=== PATIENT | male | born 1935 | race Caucasian/White ===

== ENCOUNTER 2021-07-11 13:02 | Emergency (ER) | payer OTHER ==
[~2021-07-11] VITALS: Ht 175.3 cm; Wt 53.1 kg
--- NOTE | ~2021-07-11 | EMS ---
[place] [id number] EMS Patient Care Report Name: JOSHUA DENNIS Room #: DEP NAHID Wilks#: [id number] Admission: 07/11/21 Attend Phys: Discharge: 07/11/21 Date of : 35 Report #: [id number] THIS REPORT FOR: //name// Report Transmitted: 07/12/2021 09:54 EMS Care Summary [place], [place]/[facility] Incident [id number] @ 07/11/2021 12:26 Incident Location [address] [place] [address] Patient JOSHUA DENNIS Male, 85 Years 1935 Patient Address Patient History Diabetes,Cardiac - Stent,Atrial Fibrillation, Patient Allergies No known allergies, Patient Medications Eliquis, Chief Complaint Syncope Disposition Transported No Lights/[place] Reason Unconscious/Fainting Transported To [facility] Narrative Medic 19 was dispatched to the scene of an unconscious. Upon arrival pt. was found sitting in chair A&Ox4. Pt. stated he had syncope while standing. Pt. denied pain and stated he felt fine. Pt was assisted to the cot and secured with straps. Pt. was taken to the ambulance and loaded into the back. Interventions performed as listed previously. Pt. was transported non-emergent to [facility] without incident. Upon arrival, pt. [place] [address] EMS Patient Care Report Name: JOSHUA DENNIS Room #: DEP [facility].R.#: [id number] Admission: 07/11/21 Attend Phys: Discharge: 07/11/21 Date of : 35 Report #: [id number] taken to the ER. Pt. was assisted to the bed and pt. care and report were given to the RN. Medic 19 returned in service. Initial Vitals @12:42P: 147,R: 14,BP: 135/75,Pain: 0/10,GCS: 15,Glucose: 222,SpO2: 99,Revised Trauma: 12,UT Suspected: false @12:42P: 143,R: 14,Pain: 0/10,GCS: 15,SpO2: 97, @12:54P: 82,R: 14,Pain: 0/10,GCS: 15,SpO2: 98,Revised Trauma: 12, Assessments @12:38MENTAL:Person Oriented,Time Oriented,Event Oriented,Place Oriented,SKIN:HEENT:Head/Face: No Abnormalities,Neck/Airway: No Abnormalities,LUNG SOUNDS:General: No Abnormalities,ABDOMEN:General: No Abnormalities,PELVIS//GI:No Abnormalities,EXTREMITIES:Capillary Refill: Left Upper: < 2 Sec,Capillary Refill: Right Upper: < 2 Sec,Left Arm: No Abnormalities,Right Arm: No Abnormalities,Left Leg: No Abnormalities,Right Leg: No Abnormalities,PULSE:Radial: 2+ Normal,NEURO:No Abnormalities,@12:58MENTAL:Time Oriented,Place Oriented,Event Oriented,Person Oriented,SKIN:HEENT:Head/Face: No Abnormalities,Neck/Airway: No Abnormalities,LUNG SOUNDS:General: No Abnormalities,ABDOMEN:General: No Abnormalities,PELVIS//GI:No Abnormalities,EXTREMITIES:Capillary Refill: Left Upper: < 2 Sec,Capillary Refill: Right Upper: < 2 Sec,Left Arm: No Abnormalities,Right Arm: No Abnormalities,Left Leg: No Abnormalities,Right Leg: No Abnormalities,PULSE:Radial: 2+ Normal,NEURO:No Abnormalities, Impression Syncope / Fainting Procedures @12:42 12-Lead ECG Response: UnchangedSucceeded @12:38 ALS Assessment Response: UnchangedSucceeded @12:43 IV Therapy - Normal Saline (.9% NaCl) 300cc (18 ga) Site: Antecubital-Left Response: UnchangedSucceeded Timeline 12:25,Call Received 12:25,Dispatch Notified 12:26,Dispatched 12:28,En Route 12:35,On Scene 12:38,At Patient 12:38,ALS Assessment,Response: UnchangedSucceeded, 12:42,12-Lead ECG,Response: UnchangedSucceeded, 12:42,BP: / M,PULSE: 143,RR: 14 R,SPO2: 97 Ox,ETCO2: ,BG: ,PAIN: 0,GCS: 15, 12:42,BP: 135/75 M,PULSE: 147,RR: 14 R,SPO2: 99 Ox,ETCO2: ,B,PAIN: [address] [address] EMS Patient Care Report Name: SONNYJOSHUA Room #: DEP NAHID Wilks#: [id number] Admission: 07/11/21 Attend Phys: Discharge: 07/11/21 Date of : 35 Report #: [id number],GCS: 15, 12:43,IV Therapy - Normal Saline (.9% NaCl) 300cc 18 ga Site: Antecubital-Left,Response: UnchangedSucceeded, 12:49,Depart Scene 12:54,BP: 136/ M,PULSE: 82,RR: 14 R,SPO2: 98 Ox,ETCO2: ,BG: ,PAIN: 0,GCS: 15, 12:58,At Destination 13:08,Call Closed Disclaimer v1.1 Copyright 2020 [employer] This EMS Care Summary contains data elements from the applicable legal record (which may be displayed differently). It is designed to provide pertinent information for the following purposes: continuity of care, clinical quality, and state data reporting. The complete legal record is available to ED staff and administrators of the receiving hospital in [employer] Patient Tracker. All data is provided "as is."
[2021-07-11 13:26] LABS: HEMATOCRIT 29.7 % (42.0-52.0); HEMOGLOBIN 9.7 gm/dL (14.0-18.0); MCHC 32.8 g/dL (28.0-37.0); MCV 94.5 fL (80.0-100.0); RBC 3.14 mil/uL (4.50-6.00); RDW 17.9 % (10.5-14.5); WBC 4.9 thou/uL (4.0-11.0)
[2021-07-11 13:31] LABS: CALCIUM 8.4 mg/dL (8.5-10.1); POTASSIUM 4.4 mmol/L (3.5-5.1)
[2021-07-11 13:41] LABS: ALBUMIN 2.6 g/dL (3.4-5.0); MAGNESIUM 2.3 mg/dL (1.8-2.4); TOTAL BILIRUBIN 0.3 mg/dL (0.2-1.0); TOTAL PROTEIN 5.9 g/dL (6.4-8.2)
[2021-07-11] MEDS ORDERED: PROTONIX40 M2 PO (13:42)
[2021-07-11] MEDS ORDERED: ASPIRIN EC81 M1 PO (13:42)
[2021-07-11] MEDS ORDERED: ELIQUIS2.5 MG PO (13:42)
[2021-07-11] MEDS ORDERED: MIRALAX119 GM PO (13:43)
[2021-07-11] MEDS ORDERED: COLACE100 MG PO (13:43)
[2021-07-11] MEDS ORDERED: NEURONTIN300 MG PO (13:45)
[2021-07-11] MEDS ORDERED: TYLENOL325 M1 PO (13:45)
[2021-07-11 13:46] LABS: APTT 26.4 Seconds (24.5-32.8); INR 0.98; PROTIME 10.7 Seconds (10.5-12.1)
[2021-07-11 15:31] LABS: URINE BILIRUBIN NEGATIVE (Negative); URINE BLOOD NEGATIVE (Negative); URINE CLARITY CLEAR; URINE COLOR YELLOW; URINE GLUCOSE-RANDOM* NEGATIVE (Negative); URINE KETONES NEGATIVE (Negative); URINE LEUKOCYTES-REFLEX NEGATIVE (Negative); URINE NITRITE-REFLEX NEGATIVE (Negative); URINE PROTEIN (DIPSTICK) NEGATIVE (Negative); URINE UROBILINOGEN 0.2 E.U./dl (0.2-1.0)
[2021-07-11 16:03] VITALS: BP 121/64
--- NOTE | 2021-07-12 12:05 | EKG ---
[address] [address] ELECTROCARDIOGRAM REPORT Name: JOSHUA DENNIS Room #: DEP NAHID Wilks#: [id number] Admission: 07/11/21 Attend Phys: Discharge: 07/11/21 Date of : 35 Report #: [id number] [facility] ED Test Date: 2021-07-11 Test Time: 13:05:40 Pat Name: JOSHUA DENNIS Department: Room: Gender: Resin Maker: : 1935 Requested By: Ruby Preciado Order Number: [id number] MD: Herbert Carroll Measurements Intervals [place] Rate: 72 P: 69 MO: 207 QRS: 79 QRSD: 105 T: 64 QT: 408 QTc: 447 Interpretive Statements Sinus rhythm Atrial premature complexes No previous ECG available for comparison Electronically Signed On 07-12-2021 12:05:07 [employer] PROCESSOR by Herbert Carroll [email or web address] <ELECTRONICALLY SIGNED> By: Herbert Carroll MD, [facility] 07/12/21 1205 1305 1305 Herbert Carroll MD, FACC /EPI
== END 2021-07-11 16:03 | disposition home or self-care (01) ==
LOC: ER 13:02
PROVIDERS: Nurse Practitioner Family
DX: I12.0 Hypertensive chronic kidney disease with stage 5 chronic kidney disease or end stage renal disease (principal); N18.6 End stage renal disease; R55 Syncope and collapse; D64.9 Anemia, unspecified; E11.65 Type 2 diabetes mellitus with hyperglycemia; E11.22 Type 2 diabetes mellitus with diabetic chronic kidney disease; I48.91 Unspecified atrial fibrillation; Z79.82 Long term (current) use of aspirin; Z79.891 Long term (current) use of opiate analgesic; Z79.899 Other long term (current) drug therapy; Z88.0 Allergy status to penicillin